=== PATIENT | male | born 1990 | race Hispanic/Latino ===

== ENCOUNTER 2019-02-09 21:02 | Emergency (ER) | payer MEDICAID ==
[2019-02-09] MEDS ORDERED: LIDOCAINE HCL 1% 20 ML VIAL ONE (21:21)
== END 2019-02-09 23:25 | disposition home or self-care (01) ==
LOC: EDH 21:02
DX: S61.411A Laceration without foreign body of right hand, initial encounter (principal); Z72.0 Tobacco use; W25.XXXA Contact with sharp glass, initial encounter; Y93.89 Activity, other specified; Y92.098 Other place in other non-institutional residence as the place of occurrence of the external cause; Y99.8 Other external cause status
CPT/HCPCS: 12042; 73130

== ENCOUNTER 2019-04-21 11:50 | Emergency (ER) | payer MEDICAID ==
[2019-04-21 12:15] LABS: BASOPHILS % (AUTO) 1.5 % (0.0-5.0); EOSINOPHILS % (AUTO) 0.6 % (0.0-8.0); HEMATOCRIT 49.5 % (42-54); LYMPHOCYTES % (AUTO) 26.9 % (21.0-51.0); MEAN CORPUSCULAR HEMOGLOBIN 30.5 pg (27.0-33.0); MEAN CORPUSCULAR HGB CONC 33.6 g/dL (32.0-36.0); MEAN CORPUSCULAR VOLUME 90.7 fL (79-99); MONOCYTES % (AUTO) 5.6 % (3.0-13.0); NEUTROPHILS % (AUTO) 65.4 % (40.0-77.0); NUCLEATED RED BLOOD CELLS 0.1 % (0.0-0.19); PLATELET COUNT (AUTO) 254 K/uL (130-400); RED BLOOD CELL COUNT(AUTO) 5.46 MIL/uL (4.50-6.20); RED CELL DISTRIBUTION WIDTH 14.9 % (11.0-15.5); WHITE BLOOD COUNT (AUTO) 6.8 K/uL (4.8-10.8)
[2019-04-21 12:45] LABS: CARBON DIOXIDE 25 mmol/L (21-32); CHLORIDE 101 mmol/L (101-111); CREATININE 1.2 mg/dL (0.5-1.5); GLOMERULAR FILTR. RATE CALC 77 mL/min (>60); GLUCOSE,RANDOM 112 mg/dL (70-105); POTASSIUM 3.4 mmol/L (3.5-5.1); SODIUM SERUM 140 mmol/L (136-145); UREA NITROGEN, BLOOD 20 mg/dL (7-18)
[2019-04-21 12:50] LABS: ALANINE AMINOTRANSFERASE 26 U/L (12-78); ALBUMIN 4.8 g/dL (3.5-5.0); ASPARTATE AMINOTRANSFERASE 26 U/L (10-37); BILIRUBIN,TOTAL 0.9 mg/dL (0.2-1.0); CREATINE KINASE, TOTAL 373 U/L (21-232); SALICYLATE 5.6 mg/dL (2.8-20.0); TOTAL PROTEIN, SERUM 8.3 g/dL (6.0-8.3)
[2019-04-21 12:53] LABS: ACETAMINOPHEN < 1 mcg/mL (10-29); ALCOHOL, BLOOD < 3 mg/dL (0-10)
[2019-04-21 13:16] LABS: APPEARANCE,URINE Clear (CLEAR); BILIRUBIN,URINE Negative (NEGATIVE); COLOR,URINE Dark Yellow (YELLOW); GLUCOSE, URINE (UA) Negative (NEGATIVE); KETONES,URINE Trace mg/dL (NEGATIVE); LEUKOCYTE ESTERASE ,URINE Negative (NEGATIVE); NITRATE,URINE Negative (NEGATIVE); OCCULT BLOOD,URINE Negative (NEGATIVE); PH,URINE 5.5 (5.0-8.0); PROTEIN,URINE Trace mg/dL (NEGATIVE)
[2019-04-21 13:23] LABS: AMPHET/METH SCREEN,URINE NEGATIVE (NEGATIVE); BARBITURATE SCREEN, URINE NEGATIVE (NEGATIVE); BENZODIAZEPINES SCREEN,URINE NEGATIVE (NEGATIVE); CANNABINOID SCREEN,URINE POSITIVE (NEGATIVE); COCAINE SCREEN,URINE NEGATIVE (NEGATIVE); OPIATE SCREEN,URINE NEGATIVE (NEGATIVE); PHENCYCLIDINE SCREEN,URINE NEGATIVE (NEGATIVE)
[2019-04-21 13:25] LABS: BACTERIA,URINE Rare /HPF (None Seen); MUCUS,URINE Moderate LPF (None Seen); RBC,URINE 0-1 /HPF (0-1); SQUAMOUS EPITHELIAL CELL,UR Rare /HPF (0-2); WBC,URINE 0-1 /HPF (0-1)
== END 2019-04-21 15:07 | disposition left against medical advice (07) ==
LOC: EDH 11:50
DX: F32.9 Major depressive disorder, single episode, unspecified (principal); F20.9 Schizophrenia, unspecified; Z72.0 Tobacco use; Z98.890 Other specified postprocedural states
CPT/HCPCS: 36415; 80053; 80305; 81001; 82550; 85025; 93005; 99285; G0480 ×2; G0481

== ENCOUNTER 2023-04-29 06:34 | Emergency (ER) | payer MEDICAID ==
[~2023-04-29] VITALS: Ht 167.6 cm; Wt 72.6 kg
[2023-04-29] MEDS ORDERED: MORPHINE 4 MG SYG ONE (08:13)
[2023-04-29] MEDS ORDERED: IBUP-2070 PO (08:18)
[2023-04-29] MEDS ORDERED: ACET-2079 PO (08:18)
[2023-04-29] MEDS ORDERED: MORPHINE 4 MG SYG IM ONE (08:30)
[2023-04-29 08:46] VITALS: BP 125/60
== END 2023-04-29 08:50 | disposition home or self-care (01) ==
LOC: EDH 06:34
DX: S82.302A Unspecified fracture of lower end of left tibia, initial encounter for closed fracture (principal); Y93.39 Activity, other involving climbing, rappelling and jumping off; Y93.H2 Activity, gardening and landscaping; Y92.89 Other specified places as the place of occurrence of the external cause; Y99.8 Other external cause status
CPT/HCPCS: 99283; 29515; 73610; 96372; J2270

== ENCOUNTER 2025-01-30 00:33 | Emergency (ER) | payer OTHER, MEDICAID ==
[~2025-01-30] VITALS: Ht 165.1 cm; Wt 81.6 kg
[~2025-01-30 00:33] MED LIST: ACET-2079 PO; IBUP-2070 PO
--- NOTE | 2025-01-30 01:15 | ERN ---
ED Note History of Present Illness Stated Complaint: LACERATION Chief Complaint: Laceration/Avulsion Time Seen by MD: 01:04 Dictation: This is a 34-year-old male who presented to the emergency room with complaints of right 2nd digit laceration and bleeding. He was checking all in the vehicle when his finger got caught in a band and he sustained the injury. Patient did not want to stay longer as he stated that his mother is sleeping in the car and he needed to leave. Temperature 98.7 pulse 89 respirations 20 blood pressure 107/78 with a pulse oximetry of 98% on room air Allergies: Coded Allergies: No Known Allergies (Unverified Allergy, Unknown, 04/21/19) Home Meds Active Scripts Ibuprofen (Ibuprofen) 600 Mg Tablet, 600 MG PO Q6H PRN for PAIN, #40 TAB 0 Refills Prov:TOMAS MILLAN MD 04/29/23 Acetaminophen with Codeine (Acetaminophen-Cod #3 Tablet) 1 Each Tablet, 1 TAB PO Q4H PRN for PAIN, #15 TAB 0 Refills Prov:TOMAS MILLAN MD 04/29/23 Past Medical History Past Medical History: No Pertinent History Surgical History: None Family History: Negative Social History: ETOH RN Note Reviewed/Agreed w/PFSH: Yes Review of System Dictation Constitutional: Negative for fever,chills, and weight loss Eyes: Negative for injury, pain,redness, and discharge ENT: Negative for injury,pain or swelling Cardiovascular: Negative for chest pain, palpitations, and edema Respiratory: Negative for shortness of breath, cough, and wheezing, Abdomen/GI: Negative for abdominal pain, nausea, vomiting, diarrhea, and constipation Back: Negative for injury and pain : Negative for injury, bleeding and discharge MS/Extremity: Negative for injury and deformity right 2nd digit laceration and some bleeding Skin: Negative for rash, and discoloration Neuro: Negative for headache, weakness, numbness, tingling, and seizure Psych: Negative for suicide ideation, homicidal ideation, and hallucinations Initial Vital Sign VS Vital Signs Date Time Temp Pulse Resp B/P (MAP) Pulse Ox O2 Delivery O2 Flow Rate FiO2 01/30/25 00:34 98.8 89 20 107/78 98 Room Air 0 Physical Exam Dictation General: awake, alert, NAD appeared under the influence Head/Face: Normocephalic, atraumatic Eyes: PERRL, EOMI, vision at baseline ENT: oral cavity clear, TMs clear, no signs of infection Neck: Trachea midline, supple, no nuchal rigidity Cardiovascular: RRR, normal S1/S2, No MRGs, no JVD Respiratory: CTAB, no respiratory distress, No rales or wheezes Abdomen: Soft, non-tender, non-distended, normal bowel sounds, no guarding or rebound. Skin: Warm, dry, normal turgor, no rash MS/Extremity: Pulses equal, no cyanosis, neurovascular intact, FROM right index finger on the palmar surface had a laceration about 2 cm linear horizontal right above the 2nd metacarpophalangeal joint. It was a clean cut superficial. No active bleeding no debris Neuro: COAx4, GCS 15, strength 5/5, CN 2-12 intact, normal cerebellar exam, normal gait, Psych: Normal behavior, mood, and affect normal Extremities-trace edema without any palpable cords, Homans sign is negative Results (Laboratory/Radiology) Labs Reviewed?: Yes ED Course ED Course Orders Procedure Category Date Status Time Hand 2+Vws Rt Limited RAD 01/30/25 Logged 01:12 Vital Signs Date Time Temp Pulse Resp B/P (MAP) Pulse Ox O2 Delivery O2 Flow Rate FiO2 01/30/25 00:34 98.8 89 20 107/78 98 Room Air 0 Medical Decision Making MDM MDM: Differential diagnosis: Superficial laceration, deep laceration, damage to the muscle, ligament, bone Rationale: Tests considered and ordered secondary to shared decision making include: Previous outside records reviewed: Old ER visits. Risk of complication and/or morbidity or mortality of patient management: None Medications-Per medication reconciliation Need for hospitalization: Patient does not meet criteria for hospitalization. Need for emergency major/minor surgery: No There are no social concerns with this patient. Prescription drug management Prescriptions will include symptomatic care Patient's prior external medical records from other ER visits were reviewed by me as indicated. Prior testing and results from previous visits were reviewed. Prior tests were taken into account with medical decision making and resource utilization, independent historian/historians were used to obtain complete medical history. I independently interpreted the test that were performed, results were reviewed by me and considered findings on radiology if ordered. Medical management and examination interpretation discussions were had by me with other qualified healthcare professionals as indicated for the patient's care. Procedure Wound Location: upper extremity Wound Length (cm): 2 Wound's Depth, Shape: linear Wound Explored: clean Irrigated w/ Saline (ccs): 10 Betadine Prep?: Yes Wound Debrided: minimal Wound Repaired With: Dermabond Sterile Dressing Applied?: Yes Problem List Problem List: (1) Laceration of index finger (2) Laceration of finger, right DX & DISP Disposition: Discharge Departure Impression: Primary Impression: Laceration of finger, right Additional Impression: Laceration of index finger Condition: Stable Additional Instructions: Patient and the caregiver have been informed of all the diagnostic tests and the imaging conducted during the today's visit to the emergency room and has verbalized understanding of the results I have personally reviewed and interpreted all diagnostic exams performed here in the ER today as well as the vital signs documented by the nursing staff. The patient is now being discharged to home and should follow up with the primary care physician or the specialist as directed by the ER staff. Follow-up with primary care provider in 1 to 2 days. Take medications as directed here in the emergency room. Okay to continue home medications unless otherwise discussed during your visit in the emergency room today. Return to your nearest emergency room if symptoms worsen or if there is no improvement. Call 911 if you need immediate assistance. Take Tylenol or Motrin [id number] as needed and if no contraindications are present. Increase oral hydration. A wound culture or [facility] please follow-up with primary care provider and advise them to get repeat ports from our facility. If you had any Roc wrap/splints that were applied here, please do not remove them until you see your primary care or specialty. Referrals: HAKEEM PERES (PCP) SAMANTHA COATS MD Jan 30, 2025 01:15
[2025-01-30 02:00] VITALS: BP 110/82; PULSE 81; RESP 16; TEMP 98.1; O2SAT 99
--- NOTE | 2025-01-30 02:00 | NUR ---
LACERATION REPAIR TO RIGHT SECOND DIGIT WITH DERMABOND, SPLINT PLACED ON FINGER
--- NOTE | 2025-01-30 02:08 | NUR ---
PATIENT DID NOT WANT TO WAIT FOR DISCHARGE INSTRUCTIONS
== END 2025-01-30 02:09 | disposition home or self-care (01) ==
LOC: EDH 00:33
DX: S61.210A Laceration without foreign body of right index finger without damage to nail, initial encounter (principal); Z79.899 Other long term (current) drug therapy; W31.89XA Contact with other specified machinery, initial encounter; Y93.89 Activity, other specified; Y92.89 Other specified places as the place of occurrence of the external cause; Y99.8 Other external cause status
CPT/HCPCS: 12001; 99282